=== PATIENT | male | born 1965 | race Caucasian/White ===

== ENCOUNTER → 2017-03-29 | Outpatient (CLI) | payer OTHER ==
[2016-11-01 21:23] VITALS: BP 140/86
[~2017-03-29] VITALS: Ht 185.4 cm; Wt 116.1 kg
[~2017-03-29] MED LIST: ALBU18HF IH; AMLO1CAP PO; AMOX1TAB58 PO; AZEL137S5 NS; ESOM20CA PO; FLUT1DIS5 IH; GUAI600T47 PO; HYDR-971 PO
--- NOTE | 2017-03-29 09:00 | RAD ---
Right upper quadrant abdominal ultrasound, 03/29/2017: History: Epigastric pain The gallbladder is within normal limits in size. There is no sonographic evidence of cholelithiasis. The gallbladder romero are not thickened. No bile duct dilatation is seen. The liver is mildly enlarged measuring approximately 18 cm in craniocaudad extent at the level of the right lobe. It demonstrates increased echogenicity in a diffuse pattern most commonly due to fatty change. No hepatic mass is seen. The visualized portions of the pancreas and right kidney are unremarkable. IMPRESSION: 1. No significant gallbladder abnormality is detected. 2. Mild hepatomegaly with hepatic steatosis.
[2017-03-29] MEDS: NORMAL SALINE IV ONE (10:29)
[2017-03-29] MEDS: SINCALIDE IV ONE (10:29)
--- NOTE | 2017-03-29 10:59 | RAD ---
Radionuclide hepatobiliary scan with gallbladder ejection fraction, 03/29/2017: History: Abdominal pain and nausea Following IV injection of 5.5 mCi of technetium 99m Choletec there was prompt uptake of the radionuclide from the blood stream by the liver. Activity is present in the bile ducts and gallbladder at 15 minutes. Small bowel activity developed at 30 minutes. Additional imaging of the gallbladder was performed following IV injection of 2.3 mcg of cholecystokinin. The gallbladder ejection fraction was calculated at 44%. 30-50% is considered to be the borderline low range. IMPRESSION: 1. No evidence of cystic duct or common bile duct obstruction. 2. The gallbladder ejection fraction is 44%.
== END | disposition home or self-care (01) ==
LOC: US 07:52
PROVIDERS: ATTEND Internal Medicine Gastroenterology
DX: K21.9 Gastro-esophageal reflux disease without esophagitis (principal); K76.0 Fatty (change of) liver, not elsewhere classified; R11.0 Nausea
CPT/HCPCS: 76705; 78226; 96374; 96375; A9537; J2805

== ENCOUNTER 2019-02-06 21:14 | Emergency (ER) | payer OTHER ==
[~2019-02-06] VITALS: Ht 188 cm; Wt 117.9 kg
[~2019-02-06 21:14] MED LIST changes: -ALBU18HF IH; +ALBU2.5V8 IH; +HYDR-3165 PO; -HYDR-971 PO
[2019-02-06 21:23] VITALS: BP 135/71
[2019-02-06] MEDS ORDERED: TETRACAINE 0.5% OPHTH SOLUTION 4ML BOTTLE. OU ONE (22:00)
--- NOTE | 2019-02-06 22:15 | PHYS DOC ---
Past History Past Medical History: GERD, Hypertension Past Surgical History: No Surgical History Smoking: Less than 1pk/day Alcohol Use: None Drug Use: None Adult General Chief Complaint Chief Complaint: EYE PROBLEMS HPI HPI Patient is a 53-year-old male who presents with complaint of bilateral eye pain that started shortly after using bug spray to kill bugs. Patient states that he believes that he may have gotten some of the over sprain to his eyes but states that they did not start to hurt right away. He was not wearing any protective lenses. He states that symptoms began approximately an hour afterwards and states that initially it was his left eye followed shortly thereafter by his right eye. He states the just feels like he has something in his eyes, feeling very gritty. He denies any change in visual acuity. He rates the pain as moderate. Review of Systems Review of Systems Constitutional: Denies fever or chills [] Eyes: Denies change in visual acuity. Positive bilateral eye redness and pain [] Respiratory: Denies cough or shortness of breath [] Cardiovascular: No additional information not addressed in HPI [] GI: Denies abdominal pain, nausea, vomiting or diarrhea [] Neurologic: Denies headache, focal weakness or sensory changes [] Current Medications Current Medications Current Medications Medications (Trade) Dose Ordered Sig/Rosalba Start Time Stop Time Status Last Admin Dose Admin Tetracaine HCl (Tetracaine) 2 drop 1X ONCE 02/06/19 22:00 02/06/19 22:01 DC Allergies Allergies Allergies Coded Allergies Type Severity Reaction Last Updated Verified No Known Drug Allergies 11/27/13 No Physical Exam Physical Exam Constitutional: Well developed, well nourished, no acute distress, non-toxic appearance. [] Eyes: PERRLA, EOMI, scleral injection is noted bilaterally. [] Cardiovascular:Heart rate regular rhythm, no murmur [] Lungs & Thorax: Bilateral breath sounds clear to auscultation [] Skin: Warm, dry, no erythema, no rash. [] Current Patient Data Vital Signs Vital Signs Date Time Temp Pulse Resp B/P (MAP) Pulse Ox O2 Delivery O2 Flow Rate FiO2 02/06/19 21:23 98.2 104 18 96 Room Air EKG EKG [] Radiology/Procedures Radiology/Procedures [] Course & Med Decision Making Course & Med Decision Making Pertinent Labs and Imaging studies reviewed. (See chart for details) Patient seen and evaluated by your medical staff after which poison control was contacted. A liter of saline has been infused into both eyes through North lens as per poison control recommendations. Patient indicates that symptoms are markedly improved at this time. Dragon Disclaimer Dragon Disclaimer This electronic medical record was generated, in whole or in part, using a voice recognition dictation system. Departure Departure: Impression: Primary Impression: Chemical conjunctivitis of both eyes Disposition: HOME, SELF-CARE Condition: STABLE Referrals: RACHANA BARILLAS (PCP) Patient Instructions: Conjunctivitis, Chemical Scripts Hydrocodone Bit/Acetaminophen (NORCO 5-325 TABLET) 1 Each Tablet 1 TAB PO PRN Q6HRS PRN for PAIN, #10 TAB 0 Refills Prov: NATALIE GARBER Jr. DO 02/06/19 Diclofenac Sodium (DICLOFENAC SODIUM) 2.5 Ml Drops 1 DROP EACHEYE TID PRN for eye pain, #2.5 ML Prov: NATALIE GARBER Jr. DO 02/06/19 NATALIE GARBER Jr. DO Feb 06, 2019 22:15
[2019-02-06] MEDS ORDERED: HYDR-3165 PO (22:50)
[2019-02-06] MEDS ORDERED: DICL2.5D EACHEYE (22:50)
== END 2019-02-06 22:58 | disposition home or self-care (01) ==
LOC: ER 21:14
DX: H10.213 Acute toxic conjunctivitis, bilateral (principal); K21.9 Gastro-esophageal reflux disease without esophagitis; I10 Essential (primary) hypertension; F17.200 Nicotine dependence, unspecified, uncomplicated
CPT/HCPCS: 99283

== ENCOUNTER 2020-09-02 09:03 | Emergency (ER) | payer OTHER ==
[~2020-09-02] VITALS: Ht 185.4 cm; Wt 129.0 kg
[~2020-09-02 09:03] MED LIST changes: +DICL2.5D EACHEYE
--- NOTE | 2020-09-02 09:47 | PHYS DOC ---
Past History Past Medical History: GERD, Hypertension Additional Past Medical Histor: thrush Past Surgical History: No Surgical History Smoking: Less than 1pk/day Alcohol Use: None Drug Use: None General Adult EDM: Chief Complaint: NEURO SYMPTOMS/DEFICITS HPI: HPI: Patient is a 54-year-old male coming down for evaluation of episode of confusion yesterday. Was being seen by his primary care prior to arrival for thrush over the past month. Patient states yesterday about 1800 he was out hunting by himself when he had episode of confusion. Patient states when he had been walking over he will and he felt short of breath. And was feeling weak he was forgetful and his short-term memory was affected. Patient states he spoke with his and she said he was repeating himself frequently. Patient was having difficulty remembering if he had done certain tasks. Patient also states he has had increased frequency and a different smell to his urine. Denies any headaches, vision change, falls, nausea, chest pain. Patient denies noticing any focal symptoms during the time. Denies any history of drug or alcohol use. Has been seen and treated twice with nystatin for thrush, was given fluconazole today by his primary care. Patient uses Symbicort and had not been rinsing his mouth out after use. Review of Systems: Review of Systems: Constitutional: Denies fever or chills Eyes: Denies change in visual acuity HENT: Denies nasal congestion or sore throat Respiratory: Denies cough or shortness of breath Cardiovascular: Denies chest pain or edema GI: Denies abdominal pain, nausea, vomiting, bloody stools or diarrhea : Denies dysuria Musculoskeletal: Denies back pain or joint pain Integument: Denies rash Neurologic: Denies headache, focal weakness or sensory changes Endocrine: Denies polyuria or polydipsia Lymphatic: Denies swollen glands Psychiatric: Denies depression or anxiety Allergies: Allergies: Allergies Coded Allergies Type Severity Reaction Last Updated Verified No Known Drug Allergies 09/02/20 No Physical Exam: PE: Constitutional: Well developed, well nourished, no acute distress, non-toxic appearance. [] HENT: Normocephalic, atraumatic, bilateral external ears normal, oropharynx moist, no oral exudates, nose normal. [] Eyes: PERRLA, EOMI, conjunctiva normal, no discharge. [] Neck: Normal range of motion, no tenderness, supple, no stridor. [] Cardiovascular:Heart rate regular rhythm, no murmur [] Lungs & Thorax: Bilateral breath sounds clear to auscultation [] Abdomen: Bowel sounds normal, soft, no tenderness, no masses, no pulsatile masses. [] Skin: Warm, dry, no erythema, no rash. [] Back: No tenderness, no CVA tenderness. [] Extremities: No tenderness, no cyanosis, no clubbing, ROM intact, no edema. [] Neurologic: Alert and oriented X 3, normal motor function, normal sensory function, no focal deficits noted. [] Psychologic: Affect normal, judgement normal, mood normal. [] Current Patient Data: Labs: Laboratory Tests Test 09/02/20 09:27 Glucose (Fingerstick) 111 mg/dL (70-99) H Vital Signs: Vital Signs Date Time Temp Pulse Resp B/P (MAP) Pulse Ox O2 Delivery O2 Flow Rate FiO2 09/02/20 09:05 98.1 98 16 161/101 (121) Room Air EKG: EKG: Normal sinus rhythm, heart rate 88, normal axis, no ectopy, no ST elevation or depression. [] Radiology/Procedures: Radiology/Procedures: CT HEAD INDICATION: Transient ischemic attack COMPARISON: None Available. Exposure: One or more of the following individualized dose reduction techniques were utilized for this examination: 1. Automated exposure control 2. Adjustment of the mA and/or kV according to patient size 3. Use of iterative reconstruction technique TECHNIQUE: 5 mm contiguous axial images were obtained from the skull base to the vertex in both bone and soft tissue algorithm. FINDINGS: No abnormal attenuation within the brain parenchyma. No evidence of acute intracranial hemorrhage. No extra-axial fluid collections. No mass effect or midline shift. Ventricular size is appropriate. Basal cisterns are patent. No fractures identified.Stewart-white differentiation is preserved.Globes and orbits are within normal limits. Paranasal sinuses and mastoid air cells are clear. IMPRESSION: No acute intracranial findings. [] Heart Score: Risk Factors: Risk Factors: DM, Current or recent (<one month) smoker, HTN, HLP, family history of CAD, obesity. Risk Scores: Score 0 - 3: 2.5% MACE over next 6 weeks - Discharge Home Score 4 - 6: 20.3% MACE over next 6 weeks - Admit for Clinical Observation Score 7 - 10: 72.7% MACE over next 6 weeks - Early Invasive Strategies Course & Med Decision Making: Course & Med Decision Making Pertinent Labs and Imaging studies reviewed. (See chart for details) Primary care provider, Dr. Cody, no abnormalities or signs of an acute stroke. He will follow up in clinic in 3 days instead of admission. Discussed return precautions [] Dragon Disclaimer: Dragon Disclaimer: This electronic medical record was generated, in whole or in part, using a voice recognition dictation system. Departure Departure: Impression: Primary Impression: Encounter for medical screening examination Disposition: 01 DC HOME SELF CARE/HOMELESS Condition: STABLE Referrals: RACHANA BARILLAS (PCP) Additional Instructions: Call Dr. Cody's office today to schedule appointment for Saturday. Return to emergency department if symptoms return VITOR SINGH MD Sep 02, 2020 09:47
--- NOTE | 2020-09-02 10:07 | RAD ---
CT HEAD INDICATION: Transient ischemic attack COMPARISON: None Available. Exposure: One or more of the following individualized dose reduction techniques were utilized for this examination: 1. Automated exposure control 2. Adjustment of the mA and/or kV according to patient size 3. Use of iterative reconstruction technique TECHNIQUE: 5 mm contiguous axial images were obtained from the skull base to the vertex in both bone and soft tissue algorithm. FINDINGS: No abnormal attenuation within the brain parenchyma. No evidence of acute intracranial hemorrhage. No extra-axial fluid collections. No mass effect or midline shift. Ventricular size is appropriate. Basal cisterns are patent. No fractures identified.Stewart-white differentiation is preserved.Globes and orbits are within normal limits. Paranasal sinuses and mastoid air cells are clear. IMPRESSION: No acute intracranial findings. Electronically signed by: Ruben Cam MD (09/02/2020 10:04 AM) [id number]
[2020-09-02 10:16] LABS: BASO # 0.1 x10^3/uL (0.0-0.2); BASO % 2 % (0-3); EOS # 0.2 x10^3/uL (0.0-0.7); EOS % 3 % (0-3); HEMATOCRIT 45.1 % (39.0-53.0); HEMOGLOBIN 15.7 g/dL (13.0-17.5); LYMPH # 2.6 x10^3/uL (1.0-4.8); LYMPH % 39 % (24-48); MEAN CORPUSCULAR HEMOGLOBIN 31 pg (25-35); MEAN CORPUSCULAR HGB CONC 35 g/dL (31-37); MEAN CORPUSCULAR VOLUME 88 fL (79-100); MONO # 0.9 x10^3/uL (0.0-1.1); MONO % 13 % (0-9); NEUT % 43 % (31-73); PLATELET COUNT 241 x10^3/uL (140-400); RED BLOOD COUNT 5.13 x10^6/uL (4.30-5.70); RED CELL DISTRIBUTION WIDTH 12.8 % (11.5-14.5); WHITE BLOOD COUNT 6.8 x10^3/uL (4.0-11.0)
[2020-09-02 10:29] LABS: CREATININE 1.3 mg/dL (0.7-1.3); GFR 57.7; POTASSIUM 4.2 mmol/L (3.5-5.1)
[2020-09-02 10:41] LABS: ALBUMIN 3.9 g/dL (3.4-5.0); ALBUMIN/GLOBULIN RATIO 1.3 (1.0-1.7); TOTAL BILIRUBIN 0.9 mg/dL (0.2-1.0); TOTAL PROTEIN 6.8 g/dL (6.4-8.2)
[2020-09-02 11:20] VITALS: BP 163/101
[2020-09-02 11:27] LABS: BACTERIA,URINE 0 /HPF (0-FEW); BILIRUBIN,URINE NEG (NEG); CLARITY,URINE CLEAR; COLOR,URINE YELLOW; GLUCOSE,URINE 100 mg/dL (NEG); NITRITE,URINE NEG (NEG); RBC,URINE 0 /HPF (0-2); SPERM,URINE PRESENT /HPF; SQUAMOUS EPITHELIAL CELL,UR OCC /LPF; UROBILINOGEN,URINE 0.2 mg/dL (0.2 mg/dL)
--- NOTE | 2020-09-02 12:40 | EKG ---
[facility] ED [facility] [address] [place] [id number] Test Date: 2020-09-02 Test Time: 09:47:47 Pat Name: CHRIS POLANCO Department: Room: Gender: M Senior Marketing Specialist: : 1965 Requested By: VITOR SINGH Order Number: [id number] Reading MD: Phoenix Manning Measurements Intervals [place] Rate: 88 P: 48 HI: 156 QRS: 35 QRSD: 104 T: 30 QT: 378 QTc: 461 Interpretive Statements SINUS RHYTHM NORMAL ECG RI6.02 No previous ECG available for comparison Electronically Signed On 09-03-2020 15:35:43 BILLING AND QUALITY TECHNICIAN by Phoenix Manning
== END 2020-09-02 12:15 | disposition home or self-care (01) ==
LOC: ER 09:03
DX: Z13.89 Encounter for screening for other disorder (principal); R41.0 Disorientation, unspecified; R53.1 Weakness; R06.02 Shortness of breath; K21.9 Gastro-esophageal reflux disease without esophagitis; I10 Essential (primary) hypertension; F17.200 Nicotine dependence, unspecified, uncomplicated
CPT/HCPCS: 36415; 70450; 80053; 81001; 82947; 83880; 84484; 85025; 93005; 99285-25

== ENCOUNTER → 2020-12-16 | Outpatient (CLI) | payer OTHER ==
--- NOTE | 2020-12-16 17:40 | RAD ---
XR CHEST 2V History: Reason: CHEST PAIN / Spl. Instructions: / History: Comparison: None. Technique: PA and lateral chest radiographs. Findings: The lungs are adequately and symmectrically inflated. No airspace consolidation, pleural effusion or pneumothorax. The cardiomediastinal silhoutte and pulmonary vasculature are within normal limits. Sof t tissues and osseous structures are unremarkable. Impression: 1. No acute cardiopulmonary process. Electronically signed by: Sourav Edwards MD (12/16/2020 5:37 PM) [facility]
== END ==
LOC: DXRAD 12:35
PROVIDERS: ATTEND Internal Medicine Gastroenterology
DX: R07.9 Chest pain, unspecified (principal); R05 Cough; R06.02 Shortness of breath
CPT/HCPCS: 71046